=== PATIENT | female | born 1940 | race African-American/Black ===

== ENCOUNTER 2016-12-23 18:54 | Emergency (ER) | payer OTHER ==
[~2016-12-23] VITALS: Ht 149.9 cm; Wt 45.0 kg
[2016-12-23] MEDS ORDERED: LACT10SO6 PO (19:22)
[2016-12-23] MEDS ORDERED: TRAM50TA3 PO (19:22)
[2016-12-23] MEDS ORDERED: AMLO1TAB39 PO (19:23)
[2016-12-23] MEDS ORDERED: CLOP75TA33 PO (19:23)
[2016-12-23] MEDS ORDERED: ISOS30TA6 PO (19:24)
[2016-12-23] MEDS ORDERED: IPRA12.94 IH (19:24)
[2016-12-23] MEDS ORDERED: ROZEREM (19:24)
[2016-12-23] MEDS ORDERED: MELO-58 PO (19:25)
[2016-12-23] MEDS ORDERED: PANTOPRAZOLE SODIUM 40 MG/VIAL IV ONE (21:00)
[2016-12-23 21:12] LABS: BASOPHILS % 0.6 % (0.0-2.0); EOSINOPHILS % 7.9 % (0.0-5.0); HEMATOCRIT. 30.2 % (36.0-48.0); HEMOGLOBIN. 10.4 g/dL (12.0-16.0); LYMPHOCYTES % 18.2 % (20.0-50.0); MEAN CORPUSCULAR HEMOGLOBIN 33.5 pg (28.0-32.0); MEAN CORPUSCULAR HGB CONC 34.3 g/dL (31.0-37.0); MEAN CORPUSCULAR VOLUME 97.6 fL (81.0-99.0); MEAN PLATELET VOLUME 6.6 fl (7.4-10.4); MONOCYTES % 8.4 % (2.0-8.0); NEUTROPHILS % 64.9 % (40.0-76.0); PLATELET 281 x1000/uL (130-400); RED CELL DISTRIBUTION WIDTH 12.8 % (11.6-14.6); WHITE BLOOD COUNT 5.6 x1000/uL (4.5-11.0)
[2016-12-23 21:19] LABS: PARTIAL THROMBOPLASTIN TIME 25.3 sec (24.0-34.0); PROTHROMBIN TIME 10.8 sec
[2016-12-23 21:20] VITALS: BP 145/70
== END 2016-12-23 22:23 | disposition home or self-care (01) ==
LOC: ER 18:56
DX: K92.2 Gastrointestinal hemorrhage, unspecified (principal); I10 Essential (primary) hypertension; Z86.73 Personal history of transient ischemic attack (TIA), and cerebral infarction without residual deficits; I25.2 Old myocardial infarction; Z96.659 Presence of unspecified artificial knee joint; T39.395A Adverse effect of other nonsteroidal anti-inflammatory drugs [NSAID], initial encounter; Y92.018 Other place in single-family (private) house as the place of occurrence of the external cause
CPT/HCPCS: 36415; 85025; 85610; 85730; 96374; 99284; C9113